=== PATIENT | male | born 1990 | race Caucasian/White ===

== ENCOUNTER → 2016-06-02 | Outpatient (CLI) | payer OTHER ==
[~2016-06-02] MED LIST: PRILOSEC20 MG PO; TORADOL10 MG PO; ZOFRAN4 MG PO
[2016-06-02 18:27] LABS: ALBUMIN 4.2 gm/dl (3.1-4.5); BILIRUBIN, TOTAL 0.9 mg/dl (0.2-1.0); BUN 10 mg/dl (7-24); CARBON DIOXIDE 32 mmol/L (21-32); CHLORIDE 102 mmol/L (98-107); EST GLOM FILT AFRICAN AMERICAN > 60 ml/min; GLUCOSE 96 mg/dL (65-99); POTASSIUM 3.9 mmol/L (3.5-5.1); SGOT/AST 17 IU/L (3-35); SGPT/ALT 17 U/L (12-78); SODIUM 140 mmol/L (136-145); TOTAL PROTEIN 7.6 gm/dL (6.4-8.2)
[2016-06-02 18:28] LABS: ALKALINE PHOSPHATASE 82 U/L (45-117)
== END | disposition home or self-care (01) ==
LOC: LAB 17:32
PROVIDERS: Family Medicine
DX: Z83.3 Family history of diabetes mellitus (principal)

== ENCOUNTER → 2016-08-14 | Outpatient (CLI) | payer OTHER | END | disposition home or self-care (01) | LOC: ORTHO 02:13 | DX: M25.531 Pain in right wrist (principal) ==

== ENCOUNTER → 2020-04-17 | Outpatient (CLI) | payer OTHER | END | disposition home or self-care (01) | LOC: RAD 12:46 | PROVIDERS: ATTEND Family Medicine | DX: M25.532 Pain in left wrist (principal); M25.531 Pain in right wrist ==

== ENCOUNTER → 2020-04-27 | Outpatient (CLI) | payer OTHER | END | disposition home or self-care (01) | LOC: MRI 07:44 | PROVIDERS: ATTEND Family Medicine | DX: M67.441 Ganglion, right hand (principal); M19.031 Primary osteoarthritis, right wrist ==

== ENCOUNTER → 2020-11-14 | Outpatient (CLI) | payer OTHER | END | disposition home or self-care (01) | LOC: US 16:00 | PROVIDERS: ATTEND Family Medicine | DX: R22.42 Localized swelling, mass and lump, left lower limb (principal) ==

== ENCOUNTER → 2023-12-18 | Outpatient (CLI) | payer BC | END | disposition home or self-care (01) | LOC: LAB 12:24 | PROVIDERS: ATTEND Family Medicine | DX: K52.9 Noninfective gastroenteritis and colitis, unspecified (principal) ==